=== PATIENT | female | born 1970 | race Two or more races ===

== ENCOUNTER 2021-12-08 12:24 | Emergency (ER) | payer OTHER ==
[~2021-12-08] VITALS: Ht 162.6 cm; Wt 115.7 kg
[2021-12-08] MEDS ORDERED: IPRATROPIUM BROM 0.5 MG/2.5ML INH SOL NEB ONE (12:45)
[2021-12-08] MEDS ORDERED: DexAMETHasone SOD PHOS 10MG/1ML VIAL INJ IV ONE (12:45)
[2021-12-08] MEDS ORDERED: ALBUTEROL SULF 2.5 MG/0.5ML(0.5%) NEB SOLN NEB ONE (12:45)
[2021-12-08] MEDS ORDERED: cloNIDine HCL 0.1 MG TAB PO ONE (12:45)
[2021-12-08 13:48] LABS: Basophils # (auto) 0 10 ^3/uL (0-0.2); Basophils % (auto) 0.7 % (0.0-2.0); Eosinophils # (auto) 0.1 10 ^3/uL (0-0.8); Eosinophils % (auto) 2.7 % (0.0-7.0); Hematocrit 31.7 % (36.0-46.0); Lymphocytes # (auto) 0.8 10 ^3/uL (0.4-5.4); Lymphocytes % (auto) 16.5 % (10.0-50.0); Mean Corpuscular Hemoglobin 21.9 pg (28.0-32.0); Mean Corpuscular Hgb Conc. 31.5 g/dL (32.0-36.0); Mean Corpuscular Volume 69.5 fL (80.0-100.0); Monocytes # (auto) 0.8 10 ^3/uL (0-1.3); Monocytes % (auto) 17.3 % (0.0-12.0); Neutrophils # (auto) 3.1 10 ^3/uL (1.6-8.6); Neutrophils % (auto) 62.8 % (37.0-80.0); Nucleated Red Blood Cells % 0.1 %; Red Blood Cells 4.57 10^6/uL (4.0-5.20); Red Cell Distribution Width 18.9 % (11.8-14.3); White Blood Cell 4.9 10^3/uL (4.4-10.8)
[2021-12-08 14:02] LABS: Albumin 3.7 g/dL (3.4-5.0); Calcium 8.2 mg/dL (8.5-10.1); Potassium 3.8 mmol/L (3.5-5.1)
[2021-12-08 14:05] LABS: BUN/Creatinine Ratio 15.3; Bilirubin, Total 0.2 mg/dL (0.2-1.0); Total Protein 7.9 g/dL (6.4-8.2)
[2021-12-08] MEDS ORDERED: CLON0.1T PO (14:07)
[2021-12-08] MEDS ORDERED: METH4PAK PO (17:53)
[2021-12-08 18:23] LABS: Urine Bacteria FEW /hpf (None Seen); Urine Blood 2+ /uL (Negative); Urine Mucus FEW (None Seen); Urine Specific Gravity 1.026 (1.001-1.035); Urine WBC 14 /hpf (0 - 5)
[2021-12-08 18:44] VITALS: BP 146/85
== END 2021-12-08 18:40 | disposition home or self-care (01) ==
LOC: ER 12:24
DX: I16.0 Hypertensive urgency (principal); I10 Essential (primary) hypertension; J45.909 Unspecified asthma, uncomplicated; Z20.822 Contact with and (suspected) exposure to COVID-19
CPT/HCPCS: 36415; 71045; 80053; 81001; 85025; 87426; 94640; 96374; 99284; J1100; J7644

== ENCOUNTER 2025-11-20 06:46 | Day surgery (SDC) | payer MEDICAID ==
[2025-11-20] VITALS (9 sets, daily range): BP systolic 119–170; BP diastolic 80–90; PULSE 85–102; RESP 18–21; TEMP 98; O2SAT 96–100
[~2025-11-20] VITALS: Ht 157.5 cm; Wt 111.1 kg
[~2025-11-20 06:46] MED LIST: CLON0.1T PO; GLIP5TAB21 PO; HYDR-3682 PO; HYDR25TA4 PO; LISI10TA34 PO; METF-372 PO; TIZA4TAB9 PO
[2025-11-20] MEDS: LIDOCAINE 2%HCL (LOCAL ANESTH.) INJ 20ML MDV ONE (08:50)
[2025-11-20] MEDS: IODIXANOL 320MG/ML 100ML BTL IV ONE (08:51)
[2025-11-20] MEDS: VERAPAMIL 2.5MG/ML INJ 2ML VIAL IV ONE (08:57)
[2025-11-20] MEDS: fentaNYL CITRATE 100 MCG/2 ML VL ONE (08:57)
[2025-11-20] MEDS: ANGIOMAX 250 MG VIAL IV ONE (08:57)
[2025-11-20] MEDS: HEPARIN SODIUM (PORCINE) 5000 UNITS/ML 1ML VIAL ONE ×2 (08:57→10:16)
[2025-11-20] MEDS: MIDAZOLAM HCL 2MG/2ML 2ml VIAL (1mg/ml) ONE (08:57)
[2025-11-20] MEDS: SODIUM CHL 0.9% 0 ML ONE (08:58)
--- NOTE | 2025-11-20 10:06 | DVHOP2 ---
Operative Report Operative Report CARDIAC REGULATORY COORDINATOR PROCEDURE REPORT [place], [place] Date of Service: 11/20/25 Semiautomatic Taper Operator: Patrice Michelle MD PROCEDURES PERFORMED: Coronary angiogram, left heart catheterization, conscious sedation administration and supervision, less than 15 minutes; fluoroscopy use and interpretation. PREOPERATIVE DIAGNOSES: Abnormal stress test with CCS class 3 angina, POSTOP DIAGNOSIS: cad DESCRIPTION OF PROCEDURE: The patient or appropriate family signed informed consent understanding the risks, benefits and alternatives of the procedure, they wished to proceed. The patient was brought to the cardiac laborer pipeline in n.p.o. state. The patient was prepped in a sterile fashion. Sedation was used per cardiac cath protocol. I administered 2 mL of 2% lidocaine to the right wrist. With an antegrade front wall puncture. I cannulated the right radial artery and placed a 6-Chinese Glidesheath slender. Next, an intra-arterial spasmolytic was administered. Next, a - 6French Page catheter andpigtail, JR4, AR1 guide and were used for coronary angiogram and LVEDP measurement and pressure pullback. At the completion of procedure, all guides and wires were removed, and there were no immediate complications. 5000 U of iv heparin FINDINGS: RCA: Moderate vessel off the left sinus. this is a form of ARCA there is mild plaque. it is dominant vessel LEFT MAIN: Moderate size left main, it bifurcates into LAD and circumflex. no stenosis. CIRCUMFLEX: Moderate caliber vessel coming off the left main with no flow limiting stenosis. LAD: LAD is a moderate caliber vessel coming of the left main. 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 consider CCTA< if this is interarterial course, pt may need CT surgical eval in future statin plavix (asa allergy) PATRICE MICHELLE MD Nov 20, 2025 10:06
[2025-11-20] MEDS: hydrALAZINE HCL 20 MG/ML VL ONE ×2 (10:12→10:13)
[2025-11-20] MEDS: MORPHINE SULFATE INJ 2 MG/ml SYRG IV ONE (11:55)
[2025-11-20] MEDS: MORPHINE SULFATE INJ 2 MG/ml SYRG ONE (11:55)
--- NOTE | 2025-11-20 15:01 | ECG ---
[facility] Test Date: 2025-11-20 Test Time: 07:48:31 Pat Name: SHABBIR RECIO Department: Room: Gender: F Order Tracer: Danny : 1971-11-19 Requested By: PATRICE MICHELLE Order Number: [id number] Reading MD: Ankur Mejia Measurements Intervals [place] Rate: 67 P: 57 CA: 172 QRS: -14 QRSD: 92 T: 0 QT: 386 QTc: 407 Interpretive Statements Normal sinus rhythm Electronically Signed On 11-20-2025 15:19:11 PST by Ankur Mejia Please click the below link to view image of tracing.
== END 2025-11-20 13:11 | disposition home or self-care (01) ==
LOC: CATH 06:46
PROVIDERS: ATTEND Internal Medicine
DX: I25.118 Atherosclerotic heart disease of native coronary artery with other forms of angina pectoris (principal); R94.39 Abnormal result of other cardiovascular function study; Z88.6 Allergy status to analgesic agent
CPT/HCPCS: 93005; 93458; C1769; C1887; C1894; J0360; J1644; J2250; J2270; J3010; J7030; Q9967; 99152